=== PATIENT | female | born 1970 | race African-American/Black ===

== ENCOUNTER 2017-01-20 17:27 | Inpatient (IN) | payer BC ==
[~2017-01-20] VITALS: Ht 157.5 cm; Wt 106.6 kg
[2017-01-20 19:48] LABS: BASOPHIL % 0.3 % (0-2)
[2017-01-20 20:04] LABS: CALCIUM 8.7 mg/dL (8.5-10.1); CARBON DIOXIDE 26.3 mmol/L (21-32); CHLORIDE SERUM 108 mmol/L (98-107); CREATININE SERUM 0.9 mg/dL (0.6-1.0); GFR1 > 60 mL/min; GLUCOSE SERUM 84 mg/dL (74-106); POTASSIUM SERUM 4.1 mmol/L (3.5-5.1); SODIUM SERUM 141 mmol/L (136-145)
[2017-01-20 20:09] LABS: ALKALINE PHOSPHATASE 65 U/L (46-116); ALT/SGPT 16 U/L (14-59); AST/SGOT 12 U/L (15-37); BILIRUBIN TOTAL 0.3 mg/dL (0.20-1.00); TOTAL PROTEIN, SERUM 7.8 g/dL (6.4-8.2)
[2017-01-20 20:11] LABS: ALBUMIN 3.3 g/dL (3.4-5.0)
[2017-01-20 20:12] LABS: RED CELL DISTRIBUTION WIDTH 22.6 % (11.5-14.5)
[2017-01-20 20:22] LABS: rbc morphology (normal/abnorm) ABNORMAL (NORMAL)
[2017-01-20 20:23] LABS: PLATELET COUNT 515 x10^3mcL (130-400)
[2017-01-20 21:45] VITALS: BP 149/71
[2017-01-20 22:39] LABS: MAGNESIUM 2.1 mg/dL (1.8-2.4); PHOSPHOROUS 3.3 mg/dL (2.5-4.9)
[2017-01-20 22:42] LABS: CHOLESTEROL/HDL RATIO 3.3; T3 TOTAL 0.98 ng/mL
[2017-01-20 23:09] LABS: FREE T4 1.01 ng/dL (0.76-1.46); FREE THYROXINE INDEX 2.4 ug/dL (1.4-4.5); T4(THYROXINE) 6.6 ug/dL (4.7-13.3)
[2017-01-21 01:28] LABS: UA SPECIFIC GRAVITY 1.015 (1.005-1.035); microscopic required? YES; urine erythrocyte TRACE (NEGATIVE)
[2017-01-21 01:37] LABS: AMPHETAMINE QUAL UR NONE DETECTED (NEG <=1000)
[2017-01-21 03:54] LABS: IRON 14 ug/dL (50-170); TOTAL IRON BINDING CAPACITY 509 ug/dL (250-450)
[2017-01-21 06:12] VITALS: BP 143/79
[2017-01-21 06:46] LABS: BASOPHIL % 0.3 % (0-2); RED BLOOD CELLS 3.01 M/mm3 (4.10-5.10)
[2017-01-21 06:49] LABS: CALCIUM 8.4 mg/dL (8.5-10.1); CARBON DIOXIDE 23.1 mmol/L (21-32); CHLORIDE SERUM 108 mmol/L (98-107); CREATININE SERUM 0.8 mg/dL (0.6-1.0); GFR1 > 60 mL/min; GLUCOSE SERUM 91 mg/dL (74-106); SODIUM SERUM 139 mmol/L (136-145)
[2017-01-21 06:51] LABS: PLATELET COUNT 448 x10^3mcL (130-400); RED CELL DISTRIBUTION WIDTH 23.5 % (11.5-14.5)
[2017-01-21 08:22] LABS: rbc morphology (normal/abnorm) ABNORMAL (NORMAL); schistocyte (helmet cell) 1+; target cell (codocyte) 1+; tear drop cell (dacryocyte) 1+
[2017-01-21 10:00] VITALS: BP 149/90
== END 2017-01-21 12:48 | disposition left against medical advice (07) | DRG 760 ==
LOC: ED 17:27 → DU 19:43
PROVIDERS: Emergency Medicine; ADMIT Family Medicine
DX: N92.1 Excessive and frequent menstruation with irregular cycle (principal); E44.1 Mild protein-calorie malnutrition; Z68.41 Body mass index [BMI] 40.0-44.9, adult; D50.0 Iron deficiency anemia secondary to blood loss (chronic); E02 Subclinical iodine-deficiency hypothyroidism; E66.01 Morbid (severe) obesity due to excess calories; Z53.29 Procedure and treatment not carried out because of patient's decision for other reasons; Z53.21 Procedure and treatment not carried out due to patient leaving prior to being seen by health care provider; Z83.3 Family history of diabetes mellitus; Z82.49 Family history of ischemic heart disease and other diseases of the circulatory system
CPT/HCPCS: 83880; 84439; J2916; J7030; Q0092